=== PATIENT | male | born 1980 | race Caucasian/White ===

== ENCOUNTER 2023-10-01 23:48 | Emergency (ER) | payer SELFPAY ==
[~2023-10-01] VITALS: Ht 162.6 cm; Wt 86.9 kg
[2023-10-02 00:24] VITALS: O2SAT 98
[2023-10-02] MEDS ORDERED: CEPH500T MT ×2 (01:11)
[2023-10-02] MEDS ORDERED: VALA100044 MT (01:11)
[2023-10-02 01:40] VITALS: BP 116/68; PULSE 56; RESP 16; TEMP 98.9
== END 2023-10-02 01:44 | disposition home or self-care (01) ==
LOC: ER 10-02 00:38
DX: K13.0 Diseases of lips (principal); H00.039 Abscess of eyelid unspecified eye, unspecified eyelid
CPT/HCPCS: 99283